=== PATIENT | female | born 2005 | race Caucasian/White ===

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

== ENCOUNTER → 2023-03-22 | Outpatient (CLI) | payer MEDICAID ==
[~2023-03-22] MED LIST: KETO10TA PO
== END ==
LOC: CARD 14:30
PROVIDERS: ATTEND Nurse Practitioner Family
DX: R00.2 Palpitations (principal); R55 Syncope and collapse
CPT/HCPCS: 93246